=== PATIENT | male | born 1995 | race Caucasian/White ===

== ENCOUNTER 2020-12-24 08:02 | Emergency (ER) | payer OTHER ==
--- NOTE | 2020-12-24 08:57 | XRAY Report ---
PROCEDURE: Ribs w/PA Chest RT INDICATIONS: R rib pain, no injury TECHNIQUE: 2 views of the right ribs were acquired, along with a single view chest. COMPARISON: None FINDINGS: Surgical changes and devices: None. Bones and chest wall: Minimally displaced fracture involving right posterior lateral 10th rib is seen . No suspicious bony lesions. Overlying soft tissues appear unremarkable. Lungs and pleura: No pleural effusions or pneumothorax. Lungs appear clear. Mediastinum: Mediastinal contours appear normal. Heart size is normal. IMPRESSION: Minimally displaced right posterior lateral 10th rib fracture. No acute cardiopulmonary pathology. Reviewed by: Karlo Villagran MD on 12/24/2020 8:55 AM PDT Approved by: Karlo Villagran MD on 12/24/2020 8:55 AM PDT Station ID: [id number]
--- NOTE | 2020-12-24 09:16 | ED Physician Documentation ---
History of Present Illness - Stated complaint Stated Complaint: RIB INJ - Chief complaint Chief Complaint: Resp - History obtained from History obtained from: Patient - History of Present Illness Timing: How many days ago (3-4) Pain level max: 7 Pain level now: 5 - Additonal information Additional information: Patient is a 25-year-old male who presents to the emergency department stating that he has had a right rib pain for the past several days. He states he has been weightlifting a lot and has been golfing frequently. Worse with movement and deep breath Better with Naprosyn. No fevers. No chills. No trauma Review of Systems Constitutional: denies: Fever, Chills Respiratory: denies: Dyspnea, Cough, Wheezing GI: denies: Vomiting PD PAST MEDICAL HISTORY - Past Medical History Past Medical History: No - Past Surgical History Past Surgical History: No - Present Medications Home Medications: Ambulatory Orders Medication Instructions Recorded Confirmed Naproxen 250 mg PO Q8H PRN #30 tablet 12/24/20 Naproxen [EC-Naproxen] 1 tab PO PRN PRN 12/24/20 12/24/20 - Allergies Allergies/Adverse Reactions: Allergies Allergy/AdvReac Type Severity Reaction Status Date / Time Penicillins Allergy Hives Verified 12/24/20 08:15 - Social History Does the pt smoke?: Yes Smoking Status: Current every day smoker Does the pt drink ETOH?: Yes Does the pt have substance abuse?: No PD ED PE NORMAL - Vitals Vital signs reviewed: Yes - General General: Alert and oriented X 3, No acute distress, Well developed/nourished - HEENT HEENT: PERRL, Moist mucous membranes - Neck Neck: Supple, no meningeal sign - Cardiac Cardiac: RRR, Strong equal pulses - Respiratory Respiratory: No respiratory distress, Clear bilaterally, Other (Tender to palpation over the right anterior ribs approximately 5 and 6. Also tender in the posterior ribs around ribs 10 and 11. No crepitus. No ecchymosis.) - Abdomen Abdomen: Soft, Non tender, Non distended - Derm Derm: Warm and dry - Neuro Neuro: Alert and oriented X 3 - Psych Psych: Normal mood, Normal affect Results - Vitals Vitals: Vital Signs - 24 hr 12/24/20 12/24/20 08:07 09:21 Temperature 36.8 C 36.7 C Heart Rate 78 80 Respiratory 16 16 Rate Blood Pressure 126/69 136/94 H O2 Saturation 99 97 Oxygen O2 Source Room air - Rads (name of study) rib xray Radiology: Prelim report reviewed, EMP read contemporaneously, See rad report (Right 10th rib fracture) PD MEDICAL DECISION MAKING - ED course Complexity details: reviewed results, re-evaluated patient, considered differential, d/w patient ED course: 25-year-old male with a right 10th rib fracture. We will prescribe Naprosyn for home. Declines anything stronger than this. No evidence of pneumo or hemothorax. Patient is well-appearing, nontoxic. Patient counseled regarding signs and symptoms for which I believe and urgent re-evaluation would be necessary. Patient with good understanding of and agreement to plan and is comfortable going home at this time This document was made in part using voice recognition software. While efforts are made to proofread this document, sound alike and grammatical errors may occur. Departure - Departure Disposition: 01 Home, Self Care Clinical Impression: Closed rib fracture Qualifiers: Encounter type: initial encounter Rib fracture type: single rib Laterality: right Qualified Code(s): S22.31XA - Fracture of one rib, right side, initial encounter for closed fracture Condition: Good Instructions: ED Fx Rib Follow-Up: YAEL MORGAN DO [Primary Care Provider] - Within 1 week Prescriptions: Naproxen 250 mg PO Q8H PRN #30 tablet PRN Reason: pain Comments: Use the medication as prescribed. Follow-up with your doctor for further care. Return if you worsen. You do have a right 10th rib fracture. This should heal on its own. Minimally displaced right posterior lateral 10th rib fracture. No acute cardiopulmonary pathology. Discharge Date/Time: 12/24/20 09:21
[2020-12-24 09:22] VITALS: BP 136/94
== END 2020-12-24 09:21 | disposition home or self-care (01) ==
LOC: ED 08:02
DX: S22.31XA Fracture of one rib, right side, initial encounter for closed fracture (principal); X58.XXXA Exposure to other specified factors, initial encounter; F17.200 Nicotine dependence, unspecified, uncomplicated
CPT/HCPCS: 99283; 99284

== ENCOUNTER 2021-02-17 17:08 | Emergency (ER) | payer OTHER ==
--- NOTE | 2021-02-17 19:00 | ED Physician Documentation ---
PD HPI HEADACHE - Stated complaint Stated Complaint: HEAD PX - Chief complaint Chief Complaint: Neuro - History obtained from History obtained from: Patient - History of Present Illness Timing - onset: Today Timing - onset during: Rest Timing - duration: Hours (3) Timing - details: Gradual onset Pain level max: 7 Pain level now: 2 Location: Global Quality: Throbbing, Aching Associated symptoms: No: Fever, Stiff neck, Nausea, Vomiting, Weakness, Numbness, Syncope, Seizure, Eye pain, Vision changes - Additional information Additional information: Patient states that he has migraine headaches. States had a migraine headache earlier, and is supposed to work at the [employer]. He states that they "told him to come here for evaluation. Currently has a minimal headache. Review of Systems Constitutional: denies: Fever, Chills Respiratory: denies: Cough GI: denies: Nausea, Vomiting, Diarrhea Skin: denies: Rash Musculoskeletal: denies: Neck pain, Back pain Neurologic: denies: Headache PD PAST MEDICAL HISTORY - Past Medical History Past Medical History: Yes Neuro: Migraines - Past Surgical History Past Surgical History: No - Present Medications Home Medications: Ambulatory Orders Medication Instructions Recorded Confirmed No Known Home Medications 02/17/21 02/17/21 - Allergies Allergies/Adverse Reactions: Allergies Allergy/AdvReac Type Severity Reaction Status Date / Time Penicillins Allergy Hives Verified 02/17/21 17:20 - Social History Does the pt smoke?: Yes Smoking Status: Current every day smoker Does the pt drink ETOH?: Yes Does the pt have substance abuse?: No PD ED PE NORMAL - Vitals Vital signs reviewed: Yes - General General: Alert and oriented X 3, No acute distress, Well developed/nourished - HEENT HEENT: Atraumatic, PERRL, EOMI, Ears normal, Moist mucous membranes, Pharynx benign - Neck Neck: Supple, no meningeal sign - Cardiac Cardiac: RRR, Strong equal pulses - Respiratory Respiratory: No respiratory distress, Clear bilaterally - Abdomen Abdomen: Soft, Non tender, Non distended - Back Back: No spinal TTP - Derm Derm: Warm and dry - Extremities Extremities: No edema - Neuro Neuro: Alert and oriented X 3, cooler supervisor 2-12 intact, No motor deficit, No sensory deficit, Normal speech - Psych Psych: Normal mood, Normal affect Results - Vitals Vitals: Oxygen O2 Source Room air PD MEDICAL DECISION MAKING - ED course Complexity details: considered differential, d/w patient ED course: Normal exam here. Minimal residual headache. We will have him follow-up with his doctor for further care. No evidence of subarachnoid hemorrhage, tumor. Patient counseled regarding signs and symptoms for which I believe and urgent re-evaluation would be necessary. Patient with good understanding of and agreement to plan and is comfortable going home at this time This document was made in part using voice recognition software. While efforts are made to proofread this document, sound alike and grammatical errors may occur. Departure - Departure Disposition: Home, Self Care Clinical Impression: Migraine Qualifiers: Migraine type: unspecified Status migrainosus presence: without status migrainosus Intractability: not intractable Qualified Code(s): G43.909 - Migraine, unspecified, not intractable, without status migrainosus Condition: Good Instructions: ED Headache Migraine Follow-Up: YAEL MORGAN, [Primary Care Provider] - As Needed Comments: Continue Motrin and Tylenol as needed for headaches. Follow-up with your doctor for further care. Forms: Activity restrictions Discharge Date/Time: 02/17/21 19:11
[2021-02-17 19:12] VITALS: BP 140/68
== END 2021-02-17 19:11 | disposition home or self-care (01) ==
LOC: ED 17:08
DX: G43.909 Migraine, unspecified, not intractable, without status migrainosus (principal); F17.200 Nicotine dependence, unspecified, uncomplicated
CPT/HCPCS: 99282

== ENCOUNTER 2022-08-18 09:35 | Emergency (ER) | payer OTHER ==
[2022-08-18 09:47] VITALS: BP 129/75
--- NOTE | 2022-08-18 10:09 | XRAY Report ---
PROCEDURE: Elbow 3 View LT INDICATIONS: Trauma TECHNIQUE: 3 views of the elbow were acquired. COMPARISON: None FINDINGS: Bones: No fractures or dislocations. No suspicious bony lesions. Soft tissues: No elbow joint effusion. No suspicious soft tissue calcifications. IMPRESSION: Noted to elbow fracture or dislocation. No significant joint effusion. Reviewed by: Karlo Villagran MD on 08/18/2022 9:08 AM WERO Approved by: Karlo Villagran MD on 08/18/2022 9:08 AM [facility]MAL[place] Station ID: [id number]
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
== END 2022-08-18 11:48 | disposition home or self-care (01) ==
LOC: ED 09:35
DX: S46.912A Strain of unspecified muscle, fascia and tendon at shoulder and upper arm level, left arm, initial encounter (principal); S70.12XA Contusion of left thigh, initial encounter; V86.96XA Unspecified occupant of dirt bike or motor/cross bike injured in nontraffic accident, initial encounter
CPT/HCPCS: 99283

== ENCOUNTER 2024-02-11 08:52 | Outpatient (CLI) | payer OTHER ==
--- NOTE | 2024-02-11 09:45 | Sleep Patient Instructions ---
Sleep Center Visit Summary - Patient Visit Information Reason for Visit: Initial consult for evaluation of sleep disordered breathing and other sleep issues. - Patient Instructions Instructions Attached: Sleep Study Home Monitor Additional Instructions: You will be completing a sleep study, either an in-lab polysomnography (PSG) or home sleep study (HST). You will follow-up in the sleep care office after the sleep study is completed to hear the results and talk about therapy, if needed. You will be called by our office staff to schedule this appointment, but you may contact us with any questions. - Clinic Information Contact: [facility] [address] [place] [address] [email or web address] T: [phone]
[2024-02-11 09:47] VITALS: BP 131/58; O2SAT 98
--- NOTE | 2024-02-11 09:47 | SLEEP CARE CONSULTATION ---
Information from patient questionnaire entered by Edison Cook. I have reviewed and concur with the information entered by Edison Cook. This document represents the service I personally performed and the decisions made by me, Julieta Antunez ARNP. History of Present Illness Service Date and Time: 02/11/2024 0852 Reason for Visit: New patient Chief Complaint: reports: Excessive daytime sleepiness, Fatigue Date of Onset: 8-10YRS Usual bedtime: 0 Time it takes to fall asleep: QUICKLY UNLESS ANXIOUS Snores at night: Yes (occasionlly, no super loud) Observed to quit breathing while asleep: No Sleeps alone due to snoring: No Number of times waking at night: 1-2 Reasons for waking at night: reports: Bathroom, Other (NOISE). denies: Choking, Snoring, Gasping for air Toss, Turn, or Twitch while sleeping: Yes Recalls having dreams: Yes Usually gets out of bed at: [id number] Feels refreshed in the morning: Yes (occasionally) Morning headache: Yes (OCCASSIONALLY (few times a month), MID DAY) Sleepy or fatigued during the day: Yes Ever fallen asleep while driving: No Takes day naps: Yes (once a week if able) Dreams during day naps: Yes Prior sleep studies: No Additional HPI information: I had the pleasure of seeing CHANDA RODRIGUEZ today regarding the possibility of him having a sleep disorder. His current complaints are excessive daytime sleepiness and fatigue. He says he has chronic fatigue. He does not feel well rested. He saw his doctor and they checked some labs that came back normal. He says he has done some shift work but even when on a regular day schedule he still suffers from daytime fatigue. He feels the most awake in the first couple hours of the day but he slowly gets more tired as the day goes on. He gets naps about once a week if he is able to get one. - Parasomnia Symptoms Ever been unable to move upon waking from sleep: Yes (once when in teens) Walks in sleep: No Talks in sleep: Yes Ever acted out dreams in sleep: No Ever felt weak in the knees when startled or emotional: No Bothered by creepy, crawly, restless sensations in legs: No Problems with memory or concentration: Yes (both) Subjective Initial Rochert Sleepiness Scale score: 7 (02/11/24) Past Medical History Past Medical History: reports: Other (no significant medical history) Social History The patient's occupation is a ACTIVE DUTY. Patient is and lives in [place]. Have you smoked in the past 12 months: No Cigarettes per day (20/pack): 10 Years of smokin Quit date: 01/2022 Smoking Pack Years: 5.0 Alcohol use: Yes Alcohol amount and frequency: 1-5 BEERS -3X MONTH Caffeine use: Yes Caffeine amount and frequency: 2-3 CUPS DAILY Family History Family history of sleep disordered breathing: No Allergies and Home Medications Known drug allergies: Yes ( LISTED ) Drug allergies reviewed: Yes Home medication list reviewed: Yes (as listed) Allergy and home medication list: Allergies Penicillins Allergy (Verified 02/11/24 08:58) Hives Home Medications Medication Instructions Recorded Confirmed Last Taken Type Amino Acids [Complete Amino Acid See Rx Instructions .ROUTE .COMPLEX 02/11/24 02/11/24 Unknown History Mix] Ashwagandha Root Extract See Rx Instructions .ROUTE .COMPLEX 02/11/24 02/11/24 Unknown History [Ashwagandha] Multivitamin See Rx Instructions .ROUTE .COMPLEX 02/11/24 02/11/24 Unknown History [place]-3/Dha/Epa/Fish Oil [Fish Oil See Rx Instructions .ROUTE .COMPLEX 02/11/24 02/11/24 Unknown History 1,000 mg Softgel] Turmeric See Rx Instructions .ROUTE .COMPLEX 02/11/24 02/11/24 Unknown History Review of Systems Weight gain over past 5 years: 30 - intentional gain Cardiovascular: denies: high blood pressure Gastrointestinal: denies: heartburn Neurological: denies: headaches Psychiatric: denies: anxiety, depression Ear/Nose/Throat: denies: tonsillectomy Musculoskeletal: reports: joint pain, other (TENDONOSIS) Physical Exam Vital signs obtained and entered by: EDISON Vázquez MA Blood Pressure: 131/58 (RIGHT ARM) Cuff size: regular Heart Rate: 64 O2 Saturation: 98 Height: 5 ft 5.5 in Weight: 165 lb 3.2 oz Body Mass Index: 27.1 BMI Classification: Overweight Neck circumference: 15.75 Nostrils: patent to airflow Mouth and throat: narrow oropharynx Soft palate: long Hard palate: normal Uvula: normal Uvula visualization: 25% Mallampati Class III Tongue: enlarged in size with teeth del real on lateral edges Tonsils: small Neck: normal w/o lymphadenopathy or thyromegaly Heart: regular rate and rhythm Lungs: clear bilaterally Impression and Plan 1. Suspected Obstructive Sleep Apnea-Hypopnea Syndrome, as suggested by a history of irregular snoring, morning headache, unrefreshed sleep, cognitive impairment, and excessive daytime sleepiness. Narrow oropharynx and obesity are common predisposing factors for obstructive sleep apnea-hypopnea syndrome. I recommend proceeding to polysomnography to confirm the diagnosis and to assess severity. If the patient has significant sleep disordered breathing, a manual CPAP titration study will also be performed to find the optimal treatment pressure. I informed the patient of what the sleep studies involve and after some discussion, obtained agreement to proceed. The pathophysiology of obstructive sleep apnea-hypopnea syndrome was discussed with the patient and health risks of cardiovascular and cerebrovascular disease if not treated. Risks of drowsy driving discussed in detail and patient advised to avoid long distance driving and to pick pulling machine tender at the first sign of drowsiness. Patient agreed to plan. * Schedule polysomnography +- manual CPAP titration study and return in 1-2 weeks after the study to discuss result and initiate therapy. * Avoid long distance driving or driving when feeling sleepy. * Avoid alcohol, sedative and muscle relaxant around bedtime. * Attempt to lose weight. * Review instructions provided by trained office staff on how to prepare for the sleep study. * Return for follow-up after sleep study completed. Counseling Topics: Weight control Plan: sleep study and follow up Visit Type: In Office Time Spent with Patient (minutes): 30 Provider Statement: I spent 100% of the Face to Face Visit with the patient with greater than 50% spent counseling the patient and coordination of care.
== END 2024-02-11 08:53 | disposition home or self-care (01) ==
LOC: SC 08:52
PROVIDERS: ATTEND Nurse Practitioner Family
DX: G47.10 Hypersomnia, unspecified (principal); R53.83 Other fatigue; G47.8 Other sleep disorders; R51.9 Headache, unspecified; Z87.891 Personal history of nicotine dependence; E66.3 Overweight; Z68.27 Body mass index [BMI] 27.0-27.9, adult; R06.83 Snoring; R41.89 Other symptoms and signs involving cognitive functions and awareness
CPT/HCPCS: 99203; 99212